=== PATIENT | female | born 1990 | race Caucasian/White ===

== ENCOUNTER 2020-12-29 07:21 | Emergency (ER) | payer SELFPAY ==
[~2020-12-29] VITALS: Ht 157.5 cm; Wt 63.5 kg
[2020-12-29 07:32] VITALS: BP 139/97
--- NOTE | 2020-12-29 07:40 | NUR ---
BIBS FOR C/O R SIDED MOUTH/JAW PAIN 09/21 AND SWELLING SINCE 0100 STARTED WITH L SIDE 6 DAYS AGO. ON AMOXICILLIN. WILL CONTINUE TO MONITOR THE PATIENT.
[2020-12-29] MEDS ORDERED: LIDOCAINE 2% 20 ML MDV ONE (07:50)
[2020-12-29] MEDS ORDERED: LIDOCAINE 2% 20 ML MDV TP ONE (08:00)
[2020-12-29] MEDS ORDERED: IBUP-1955 PO (08:17)
[2020-12-29] MEDS ORDERED: AMOX-430 PO (08:17)
[2020-12-29] MEDS ORDERED: oxyCODONE/APAP (5/325 MG) 1 UDTAB TABLET ONE (08:22)
[2020-12-29] MEDS ORDERED: oxyCODONE/APAP (5/325 MG) 1 UDTAB TABLET PO ONE (08:30)
== END 2020-12-29 08:30 | disposition home or self-care (01) ==
LOC: ER 07:25
DX: J36 Peritonsillar abscess (principal)
CPT/HCPCS: 42700; 99284; A6403; J3490

== ENCOUNTER 2021-03-28 07:28 | Emergency (ER) | payer SELFPAY ==
[~2021-03-28] VITALS: Ht 157.5 cm; Wt 68.0 kg
[~2021-03-28 07:28] MED LIST: AMOX-430 PO; IBUP-1955 PO
--- NOTE | 2021-03-28 07:54 | NUR ---
BIBS FOR C/O SORETHROAT, SWOLLEN TONSILS, BODYACHES SINCE YESTERDAY. RATES PAIN 5/10. IN ROOM AIR AND DENIES SOB. RESPIRATION REGULAR AND UNLABORED. WILL CONTINUE TO MONITOR THE PATIENT.
[2021-03-28] MEDS ORDERED: ACETAMINOPHEN 325 MG TABLET ONE (08:17)
[2021-03-28] MEDS ORDERED: IV NS 0.9% 1,000 ML BAG IV ONE (08:30)
[2021-03-28] MEDS ORDERED: ACETAMINOPHEN 325 MG TABLET PO ONE (08:30)
--- NOTE | 2021-03-28 08:30 | NUR ---
30 YEARS OLD FEMALE WITH THROAT PAIN, TONSIL RED/SWOLLEN, TYLENOL PO GIVEN TOLERATED WELL, IVF IN PROGRESS, LAB COLLECTED, SWAB SENT TO LAB RESULT PENDING.
[2021-03-28 08:36] LABS: BASOPHILS # (AUTO) 0.1 K/uL (0.0-0.2); BASOPHILS % (AUTO) 0.5 % (0.0-2.0); EOSINOPHILS % (AUTO) 0.1 % (0.0-6.0); HEMATOCRIT 41 % (33-45); HEMOGLOBIN 13.6 g/dL (11.5-14.8); LYMPHOCYTES % (AUTO) 6.3 % (20.0-44.0); MEAN CORPUSCULAR HGB CONC 33 g/dl (31.0-36.0); MEAN CORPUSCULAR VOLUME 93 fL (82-100); MONOCYTES # (AUTO) 0.8 K/uL (0.1-1.30); MONOCYTES % (AUTO) 4.9 % (2.0-12.0); NEUTROPHILS % (AUTO) 88.2 % (43.0-81.0); PLATELET COUNT (AUTO) 333 K/uL (150-450); RED BLOOD CELL COUNT(AUTO) 4.38 MIL/uL (4.0-5.2); WHITE BLOOD COUNT (AUTO) 15.8 K/uL (4.3-11.0)
[2021-03-28 08:43] LABS: CALCIUM, SERUM 8.8 mg/dL (8.5-10.1); CREATININE 0.9 mg/dL (0.6-1.3); POTASSIUM 3.6 mmol/L (3.5-5.1)
[2021-03-28] MEDS ORDERED: AMOXICILLIN TRIHYDRATE 250 MG CAPSULE ONE (09:27)
[2021-03-28] MEDS ORDERED: AMOXICILLIN TRIHYDRATE 500 MG CAPSULE PO ONE (09:30)
[2021-03-28 09:54] LABS: MONOTEST NEGATIVE (NEGATIVE)
--- NOTE | 2021-03-28 10:13 | NUR ---
URINE COLLECTED AND SENT TO LAB
--- NOTE | 2021-03-28 10:59 | NUR ---
patient reassess no acute distress, vital stable.
[2021-03-28] MEDS ORDERED: DEXAMETHASONE SOD PHOSPHATE 10 MG/ML VIAL ONE (11:20)
[2021-03-28] MEDS ORDERED: DEXAMETHASONE SOD PHOSPHATE 10 MG/ML VIAL IV ONE (11:30)
[2021-03-28] MEDS ORDERED: AMOX-430 PO (11:34)
--- NOTE | 2021-03-28 11:49 | NUR ---
IV removed. Catheter intact and site benign. Pressure and 4x4 applied to site. No bleeding noted.Patient discharged to home in stable condition. Written and verbal after care instructions given. Patient verbalizes understanding of instruction.
[2021-03-28 11:50] VITALS: BP 126/72
== END 2021-03-28 11:50 | disposition home or self-care (01) ==
LOC: ER 07:35
DX: J02.9 Acute pharyngitis, unspecified (principal); F17.200 Nicotine dependence, unspecified, uncomplicated; Z79.899 Other long term (current) drug therapy
CPT/HCPCS: 36415; 80048; 84703; 85025; 86308; 87070; 87880; 96361; 96374; 99283; J1100; J7030; 86403-TC